=== PATIENT | female | born 1965 | race Caucasian/White ===

== ENCOUNTER 2020-11-01 11:00 | Outpatient (REF) | payer BC, SELFPAY ==
[2020-11-01 14:28] LABS: Alanine Aminotransferase 30 U/L (0-31); Albumin Level 4.3 g/dL (3.5-5.0); Alkaline Phosphatase 91 U/L (39-117); Amylase 33 U/L (28-100); Aspartate Amino Transferase 23 U/L (5-31); Bilirubin Direct 0.7 mg/dL (0.0-0.5); Blood Urea Nitrogen 14 mg/dL (9-16); Estimated Glomerular Filt Rate > 60; Lipase 18 U/L (8-78); Total Protein 7.2 g/dL (6.5-8.0)
[2020-11-02 10:22] LABS: Carbohydrate Antigen 19-9 10 U/mL (<34)
== END 2020-11-01 11:01 | disposition home or self-care (01) ==
LOC: HO.HMGCLDS 11:00
PROVIDERS: Visit Provider Internal Medicine
DX: K86.2 Cyst of pancreas (principal)
CPT/HCPCS: 36415; 80076; 82150; 82565; 83690; 84520; 86301

== ENCOUNTER 2020-11-08 10:25 | Outpatient (REF) | payer BC, SELFPAY ==
--- NOTE | ~2020-11-08 | CT_ITS ---
EXAMINATION: CT ABDOMEN AND PELVIS WITH CONTRAST CLINICAL INFORMATION: Pancreatic cyst. COMPARISON: CT abdomen and pelvis 07/31/2019 TECHNIQUE: Multidetector volumetric images were obtained from the superior aspect of the liver through the pubic symphysis following administration 85 mL of Omnipaque 350 intravenous contrast. Sagittal and coronal reformatted images were obtained on the technologist's workstation. Oral contrast: No This CT examination was performed using dose optimization techniques as appropriate, variously including the following: *Automated exposure control *Adjustment of mA and/or kV according to patient size (this includes techniques or standardized protocols for targeted exams where dose is matched to indication/reason for exam; i.e. extremities or head) *Use of iterative reconstruction technique DLP: 635 mGy-cm FINDINGS: LUNG BASES: Minimal atelectatic changes as seen in the lingula. Rest of the lungs are clear. Heart size is normal. LIVER, GALLBLADDER, AND BILIARY TREE: The liver is normal in size, shape, and attenuation. No focal hepatic lesion or biliary ductal dilatation is present. The gallbladder has been surgically removed. PANCREAS: There is a mild high attenuation lesion in the tail of pancreas measuring approximately 1 cm. It is stable. There are prominent vessels in this region and the splenic hilum. SPLEEN: Unremarkable. ADRENAL GLANDS: Unremarkable. KIDNEYS AND URETERS: The kidneys are normal in size, shape, and attenuation. No hydronephrosis, hydroureter, or calculi seen. No perinephric stranding. BLADDER: Unremarkable. GASTROINTESTINAL TRACT: There is scattered stool and oral contrast seen throughout the colon without distention. The small bowel loops are normal caliber. The stomach is nondistended. Appendix is normal caliber. ABDOMINAL WALL: No significant hernia is appreciated. LYMPH NODES: Normal. VASCULAR: Unremarkable. PELVIC VISCERA: There is no free fluid. No abnormal pelvic or inguinal lymph nodes seen. No evidence of hernia. OSSEOUS STRUCTURES: Unremarkable. CT/CT abdomen pelvis w con IMPRESSION: There is slight high-attenuation lesion in the tail of pancreas. It is stable to last CT abdomen and pelvis exam. Apparently this was a cyst described on previous CT abdomen exam 05/08/2018 exam. . Also visualized are adjacent prominent splenic vessels in the vicinity. The liver and pancreas is attenuated likely from fatty infiltration. Mild constipation.
[2020-11-08] MEDS: iohexoL 350 MG/ML 100 ML INFUS..BTL 85 ML IV (11:22)
== END 2020-11-08 10:26 | disposition home or self-care (01) ==
LOC: HO.CT 10:25
PROVIDERS: Visit Provider Internal Medicine
DX: K86.2 Cyst of pancreas (principal)
CPT/HCPCS: 74177; Q9967

== ENCOUNTER 2021-08-14 08:27 | Day surgery (SDC) | payer BC, SELFPAY ==
[2021-08-07 14:38] VITALS: BMI 34.8
[2021-08-14 08:54] VITALS: BP 131/62; PULSE 71; RESP 16; TEMP 36.5; O2SAT 97
[2021-08-14] MEDS: Lactated Ringers 1,000 ML 50 ML IVCONT (08:59)
--- NOTE | 2021-08-14 09:35 | HO.ANESPROP2 ---
FORMERLY [facility] Active Problems Active Problems: All Active Problems (Updated 08/07/21 @ 14:29 by Nely Lloyd RN) Knee pain, left (Acute) Past Medical History Medical History GERD (gastroesophageal reflux disease) Hot flashes Hx of colonic polyps Pancreatic cyst Smoker Surgical History Surgical History History of esophagogastroduodenoscopy (EGD) Hx laparoscopic cholecystectomy Hx of colonoscopy History of Problems with Anesthesia: No Social History Social History Are you a primary certified caregiver to a significant other at home: No Do you presently have visiting nurse or other home services: No Patient Tobacco Use Status: Current everyday Tobacco user Tobacco use type: Cigarette Cigarette Packs Per Day: 1 Cigarettes Per Day: 20.0 Years Smoked: 30+ Smoked in Last 30 Days: Yes Patient Interested in Nicotine Replacement: No Use of substances other than those prescribed or required for medical reasons: No Have you been hit, kicked, punched, or otherwise hurt by someone within the past year? If so, by whom?: No Are you DNR?: No Advance Directives: No Advance Directives Information Provided: No Advance Directives on File: No Recently lost weight without trying: No Eating poorly because of decreased appetite: No Nutrition Risks: No Nutritional Risk Patient : No Meds Allergies Allergy/AdvReac Type Severity Reaction Status Date / Time codeine [CODEINE] Allergy Intermediate NAUSEA & Verified 08/14/21 08:37 VOMITING Penicillins [PENICILLINS] Allergy Mild PAIN Verified 08/14/21 08:37 ACROSS CHEST NSAIDS (Non-Steroidal AdvReac Intermediate PANCREATITI Verified 08/14/21 08:37 Anti-Inflamma S [NSAIDS (NON-STEROIDAL ANTI-INFLAMMA] Active Medications: Current Medications Lactated Ringer's (Lr) 1,000 mls @ 50 mls/hr IVCONT .Q20H EVARISTO Last Admin: 08/14/21 08:59 Dose: 50 mls/hr Documented by: Sodium Biphosphate/Sodium Phosphate (Sodium Phosphate,Blaine-Dibasic 133 Ml Enema) 133 ml [place] ONCE PRN PRN Reason: Poor Colonoscopy Prep Results Home Medications Medication Instructions Recorded Confirmed Last Taken Type omeprazole 20 mg capsule,delayed 20 mg PO BID 03/31/21 08/07/21 Unknown History release cholecalciferol (vitamin D3) 25 25 mcg PO DAILY 08/07/21 08/07/21 Unknown History mcg (1,000 unit) capsule (Vitamin D3) Exam Exam Date and Time: August 14, 2021 0935 Height,Weight and Vital Signs: Height 5 ft 6 in Weight 97.976 kg Last Vital Signs Temp 97.7 F 08/14/21 08:54 Pulse 71 08/14/21 08:54 Resp 16 08/14/21 08:54 BP 131/62 08/14/21 08:54 Pulse Ox 97 08/14/21 08:54 Airway Mallampati Class: II Neck ROM: Full Loose/Missing/Broken Teeth: No Heart: RRR Lungs: CTA Assessment and Plan Assessment Anesthesia Assessment: Anesthesia Plan Discussed and Chart Reviewed Final Anesthetic Review History of Problems with Anesthesia: No NPO: Yes ASA Class: II Final Preanesthetic Review: Meds/Allgs Chart Reviewed, Consent Obtained/Reviewed and Anes Risks/Benef Reviewed Patient Risk: Low Procedure Risk: Low Anesthetic Plan Anesthetic Plan: MAC: Disposition: Standard PACU
[2021-08-14 10:49] VITALS: BP 177/76; PULSE 60; RESP 14; TEMP 36.6; O2SAT 96
--- NOTE | 2021-08-14 10:52 | P.BOP_ITS ---
Brief Operative Note Date of Service: 08/14/21 Pre-op diagnosis: Screening Post-op diagnosis: other (Colon polyps) Procedure: Colonoscopy to the cecum and TI with hot snare polypectomy x 3 Surgeon: Victor Manuel Montague Anesthesia: MAC Was an Headmaster/Mistress used for this Procedure?: No Estimated blood loss (mL): 2.0 Pathology: other (A. Ascending colon polyps B. Polyp at 20cm) Condition: stable Disposition: PACU
[2021-08-14 11:05] VITALS: BP 112/76; PULSE 60; RESP 17; TEMP 36.6; O2SAT 99
--- NOTE | 2021-08-14 11:47 | OP_ITS ---
SURGEON: Victor Manuel Montague MD INDICATIONS: The patient presents for evaluation of colorectal cancer screening and personal history of tubular adenoma of the colon. Full consent has been obtained from her for this, including risks of bleeding and perforation. PREOPERATIVE DIAGNOSIS: POSTOPERATIVE DIAGNOSIS: PROCEDURE PERFORMED: Colonoscopy to cecum and terminal ileum with snare polypectomy. ESTIMATED BLOOD LOSS: COMPLICATIONS: ANESTHESIA: Monitored anesthesia care. ASSISTANTS: SPECIMENS: PREOPERATIVE DIAGNOSES: Colorectal cancer screening and personal history of tubular adenoma of the colon. POSTOPERATIVE DIAGNOSES: Colorectal cancer screening and personal history of tubular adenoma of the colon, colon polyps, diverticulosis and internal hemorrhoids. DESCRIPTION OF PROCEDURE: The patient was placed in the left lateral decubitus position. The digital rectal exam revealed no abnormalities. The Olympus video pediatric colonoscope was entered into the rectum and advanced easily to the cecum. Once in the cecum, I did identify normal-appearing cecal pouch with appendiceal orifice and a normal-appearing ileocecal valve. The terminal ileum was cannulated and appeared normal. The scope was withdrawn back in the colon. The entire cecum and ileocecal valve appeared normal. The scope was slowly withdrawn assessing all mucosal surfaces carefully. Preparation was excellent. In the ascending colon, were 2 polyps. One was approximately 10 mm in diameter, and this was snared and recovered by suction. The polypectomy site appeared clean, without any sign of residual polyp nor bleeding. In the ascending colon, was another polyp that was approximately 12 to 15 mm in diameter and was snared and removed in piecemeal fashion with pieces recovered for pathology. The polypectomy site appeared clean, without any sign of residual polyp nor bleeding. At 20 cm, was an approximately 6 mm polyp, which was snared and recovered by suction. The polypectomy site appeared clean, without any sign of residual polyp nor bleeding. Of note, all of the snare polypectomies were done with the hot snare. There was a mild amount of sigmoid diverticulosis. In the rectum, scope was retroflexed visualizing internal hemorrhoids, but no other pathology. The rectal mucosa appeared normal. The scope was straightened out and withdrawn from the patient. She tolerated the procedure well and was returned to the recovery area in stable condition. IMPRESSION: 1. Colon polyps, status post snare polypectomy. 2. Mild diverticulosis. 3. Internal hemorrhoids. PLAN: The results of the pathology will be checked. I would recommend a repeat colonoscopy in 3 years for further screening and surveillance given her prior history and today's findings. She was advised not to use any aspirin nor NSAIDs for 1 week. MD CARRI Kimbrough/CED / [phone]
== END 2021-08-14 11:30 | disposition home or self-care (01) ==
PROVIDERS: Visit Provider Internal Medicine
PROC: 0DJD8ZZ Inspection of Lower Intestinal Tract, Via Natural or Artificial Opening Endoscopic (ICD-10-PCS; CPT 45378; principal; 2021-08-14 09:30)
DX: Z12.11 Encounter for screening for malignant neoplasm of colon (principal); Z86.010 Personal history of colon polyps; D12.2 Benign neoplasm of ascending colon; D12.5 Benign neoplasm of sigmoid colon; K57.30 Diverticulosis of large intestine without perforation or abscess without bleeding; K64.8 Other hemorrhoids; K21.9 Gastro-esophageal reflux disease without esophagitis; Z90.49 Acquired absence of other specified parts of digestive tract; Z79.899 Other long term (current) drug therapy
CPT/HCPCS: 45385; 88305

== ENCOUNTER 2021-12-16 11:45 | Outpatient (REF) | payer BC, SELFPAY ==
--- NOTE | ~2021-12-16 | XR_ITS ---
EXAMINATION: XR CHEST CLINICAL INFORMATION: Cough COMPARISON: July 02, 2017 TECHNIQUE: 2 views of the chest were obtained. FINDINGS: No significant abnormality is noted involving the heart, lungs, mediastinum, bony thorax or soft tissues. There are prominent pericardial fat pads. XR/XR chest 2V IMPRESSION: No acute disease.
[2021-12-16 12:10] LABS: Binax Internal Control QC Valid; Binax Now Covid-19 Ag Negative (Negative)
== END 2021-12-16 11:46 | disposition home or self-care (01) ==
LOC: HO.HMGCX 11:45
PROVIDERS: Visit Provider Physician Assistant
DX: R06.2 Wheezing (principal); J32.9 Chronic sinusitis, unspecified; R05.9 Cough, unspecified
CPT/HCPCS: 71046

== ENCOUNTER 2021-12-21 13:22 | Outpatient (REF) | payer BC, SELFPAY ==
--- NOTE | ~2021-12-21 | XR_ITS ---
EXAMINATION: XR CHEST CLINICAL INFORMATION: Cough. COMPARISON: None TECHNIQUE: 2 views of the chest were obtained. FINDINGS: No significant abnormality is noted involving the heart, lungs, mediastinum, bony thorax or soft tissues. XR/XR chest 2V IMPRESSION: Unremarkable chest examination.
[2021-12-21 13:48] LABS: Binax Internal Control QC Valid; Binax Now Covid-19 Ag Negative (Negative)
== END 2021-12-21 13:23 | disposition home or self-care (01) ==
LOC: HO.HMGCX 13:22
PROVIDERS: Visit Provider Physician Assistant
DX: J06.9 Acute upper respiratory infection, unspecified (principal); R05.9 Cough, unspecified
CPT/HCPCS: 71046

== ENCOUNTER 2023-01-03 07:13 | Outpatient (REF) | payer BC, SELFPAY ==
[2023-01-03 11:23] LABS: MANUAL DIFF FLAG NO
[2023-01-03 11:54] LABS: Basophils Absolute Auto 0.1 X10*3/uL (0.0-0.2); Basophils Percent Auto 0.6 % (0-2); Eosinophils Absolute Auto 0.2 X10*3/uL (0.0-0.4); Eosinophils Percent Auto 2.5 % (0-4); Hematocrit 46.2 % (37.0-47.0); Hemoglobin 14.9 g/dl (12.0-16.0); Imm Gran Abs Auto 0.03 X10*3/uL (0.00-0.03); Imm Gran Pct Auto 0.3 % (0.0-0.4); Lymphocytes Absolute Auto 2.7 X10*3/uL (1.2-4.9); Lymphocytes Percent Auto 28.4 % (20-40); Mean Corpuscular HGB Conc 32.3 g/dl (31.0-35.0); Mean Corpuscular Hemoglobin 29.4 pg (27.0-33.0); Mean Corpuscular Volume 91.3 fL (80.0-98.0); Mean Platelet Volume 12.6 fL (9.4-12.3); Monocytes Absolute Auto 0.5 X10*3/uL (0.1-1.2); Neutrophils Absolute Auto 5.9 x10*3/uL (2.0-8.3); Neutrophils Percent Auto 63.2 % (45-73); Platelet Count 221 X10*3/uL (160-400); Red Blood Count 5.06 X10*6/uL (4.20-5.50); Red Cell Distribution Width 13.3 % (11.0-16.0); White Blood Count 9.4 X10*3/uL (4.8-10.8)
[2023-01-03 11:54] LABS: Appearance Urine Hazy; Color Urine Yellow; Glucose Urine UA Negative (Negative); Leukocyte Esterase Urine Negative (Negative); Nitrite Urine Negative (Negative); Specific Gravity - Urine >= 1.030 (1.005-1.025); UMIC TRIGGER UA YES; Urine Blood Trace (Negative); Urine Ketones Negative (Negative); Urine Protein Negative (Neg-Trace)
[2023-01-03 12:08] LABS: Alanine Aminotransferase 22 U/L (0-31); Alkaline Phosphatase 103 U/L (39-117); Anion Gap 11 (12-20); Aspartate Amino Transferase 19 U/L (5-31); Bilirubin Total 0.6 mg/dL (0.0-1.0); Blood Urea Nitrogen 19 mg/dL (9-16); Carbon Dioxide 30 mmol/L (22-29); Chloride 106 mmol/L (96-108); Cholesterol 188 mg/dL; Estimated Glomerular Filt Rate > 60; Glucose Fasting 123 mg/dL (60-99); HDL Cholesterol 46 mg/dL; LDL Cholesterol Calculated 118 mg/dl; Potassium 4.5 mmol/L (3.3-5.1); Sodium 142 mmol/L (135-145); Total Protein 6.4 g/dL (6.5-8.0); Triglycerides 121 mg/dL
[2023-01-03 12:29] LABS: TSH reflex Free T4 3.19 uIU/mL (0.32-4.0); Vitamin D 25-OH Total 36.8 ng/mL (>30)
[2023-01-03 13:11] LABS: Bacteria Urine 1+ (None Seen); Hyaline Casts Urine 0-2 /LPF (0-2); RBC Urine 0-2 /HPF (0-2); Squamous Epithelial Cell Urine 0-2 /HPF (0-2); WBC Urine 0-5 /HPF (0-5)
== END 2023-01-03 07:14 | disposition home or self-care (01) ==
LOC: HO.HMGCLDS 07:13
PROVIDERS: PCP Internal Medicine; Visit Provider Internal Medicine
DX: Z00.00 Encounter for general adult medical examination without abnormal findings (principal); E55.9 Vitamin D deficiency, unspecified
CPT/HCPCS: 36415; 80053; 80061; 81001; 82306; 84443; 85025

== ENCOUNTER 2025-03-29 07:28 | Day surgery (SDC) | payer BC, SELFPAY ==
--- OUTSIDE RECORDS SUMMARY | 2025-03-09 10:43 | XMS_ITS | Patient Health Record ---
Author Organization [facility] [address] Address [address] [facility] [place] [address] Care Team Providers Care Optometrist Assistant Name Role Phone SURINDER BRADLEY Unavailable [phone] Allergies Allergen (clinical drug ingredient) Drug/Non Drug Allergy documented on EMR Reaction Allergy Type Onset Date Status codeine Codeine pain/sick Drug Allergy Active Penicillin pain Drug Allergy Active Results Component Value Reference Range Notes Comp. Metabolic Panel [id number] Reviewed date:11/19/2024 08:09:11 AM Interpretation: Performing Lab:[facility], [facility], Phone - [phone], Director - MDJobrigette Notes/Report: Glucose 112 70-99 mg/dL BUN 14 8-27 mg/dL Creatinine 0.64 0.57-1.00 mg/dL eGFR 100 >59 mL/min/1.73 BUN/Creatinine Ratio 22 12-28 Sodium 138 134-144 mmol/L Potassium 4.1 3.5-5.2 mmol/L Chloride 100 96-106 mmol/L Carbon Dioxide, Total 25 20-29 mmol/L Calcium 8.6 8.7-10.3 mg/dL Protein, Total 6.3 6.0-8.5 g/dL Albumin 4.0 3.9-4.9 g/dL Globulin, Total 2.3 1.5-4.5 g/dL Bilirubin, Total 0.6 0.0-1.2 mg/dL Alkaline Phosphatase 95 44-121 IU/L AST (SGOT) 18 0-40 IU/L ALT (SGPT) 23 0-32 IU/L Lipid Panel-[id number] Reviewed date:11/19/2024 08:09:11 AM Interpretation: Performing Lab:[facility], [place], Phone - [phone], Director - MDCarmelitadry Notes/Report: Cholesterol, Total 181 100-199 mg/dL Triglycerides 119 0-149 mg/dL HDL Cholesterol 54 >39 mg/dL VLDL Cholesterol Manfred 21 5-40 mg/dL LDL Chol Calc ([facility]) 106 0-99 mg/dL Vitamin D, 20-[id number] Reviewed date:11/19/2024 08:07:52 AM Interpretation: Performing Lab:[facility], [address] [place] [address], Phone - [phone], Director - Davion Notes/Report: Vitamin D, 25-Hydroxy 29.3 30.0-100.0 ng/mL Vitamin D deficiency has been defined by the [place] of Medicine and an Endocrine Society practice guideline as a level of serum 25-OH vitamin D less than 20 ng/mL (1,2). The Endocrine Society went on to further define vitamin D insufficiency as a level between 21 and 29 ng/mL (2). 1. IOM ([place] of Medicine). 2010. Dietary reference intakes for calcium and D. [place]: The National Academies Press. 2. Rolando MF, Gertrudis [place], Singh GOMEZ, et al. Evaluation, treatment, and prevention of vitamin D deficiency: an Endocrine Society clinical practice guideline. JCEM. 2010; 96(7):1911-30. Triiodothyronine (T3), Free- [id number] Reviewed date:11/19/2024 08:09:11 AM Interpretation: Performing Lab:[facility], [address] [place] [address], Phone - [phone], - Davion Notes/Report: Triiodothyronine (T3), Free 3.3 2.0-4.4 pg/mL CBC With Differential/Platel et-[id number] Reviewed date:11/19/2024 08:09:11 AM Interpretation: Performing Lab:[facility], [address] [facility], [place], Phone - [phone], - Davion Notes/Report: WBC 9.4 3.4-10.8 x10E3/uL RBC 4.87 3.77-5.28 x10E6/uL Hemoglobin 14.3 11.1-15.9 g/dL Hematocrit 44.2 34.0-46.6 % MCV 91 79-97 fL MCH 29.4 26.6-33.0 pg MCHC 32.4 31.5-35.7 g/dL RDW 12.7 11.7-15.4 % Platelets 221 150-450 x10E3/uL Neutrophils 68 Not Estab. % Lymphs 24 Not Estab. % Monocytes 5 Not Estab. % Eos 2 Not Estab. % Basos 1 Not Estab. % Neutrophils (Absolute) 6.4 1.4-7.0 x10E3/uL Lymphs (Absolute) 2.2 0.7-3.1 x10E3/uL Monocytes(Absolute) 0.5 0.1-0.9 x10E3/uL Eos (Absolute) 0.2 0.0-0.4 x10E3/uL Baso (Absolute) 0.1 0.0-0.2 x10E3/uL Immature Granulocytes 0 Not Estab. % Immature Grans (Abs) 0.0 0.0-0.1 x10E3/uL TSH-[id number] Reviewed date:11/19/2024 08:09:11 AM Interpretation: Performing Lab:[facility] [place], [address] [place] [address], Phone - [phone], Director - MDJodry Notes/Report: TSH 2.380 0.450-4.500 uIU/mL Urinalysis, Complete-[id number] Reviewed date:11/19/2024 08:09:11 AM Interpretation: Performing Lab:[facility] [place], [address] [place] [address], Phone - [phone], Director - MDJodry Notes/Report: Specific [employer] 1.010 1.005-1.030 pH 6.5 5.0-7.5 Urine-Color Yellow Yellow Appearance Clear Clear WBC Esterase Negative Negative Protein Negative Negative/Trace Glucose Negative Negative Ketones Negative Negative Occult Blood Negative Negative Bilirubin Negative Negative Urobilinogen,Semi-Qn 0.2 0.2-1.0 mg/dL Nitrite, Urine Negative Negative Microscopic Examination Micr oscopic follows if indicated. Microscopic Examination See below: Micr oscopic was indicated and was performed. WBC None seen 0 - 5 /hpf RBC None seen 0 - 2 /hpf Epithelial Cells (non renal) None seen 0 - 10 /hpf Casts None seen None seen /lpf Bacteria None seen None seen/Few Thyroxine (T4) Free, Direct- [id number] Reviewed date:11/19/2024 08:09:11 AM Interpretation: Performing Lab:[facility], [facility] [place], Phone - [phone], Director - Davion Notes/Report: T4,Free(Direct) 1.23 0.82-1.77 ng/dL Vitamin [id number] Reviewed date:11/19/2024 08:09:11 AM Interpretation: Performing Lab:[facility], [facility] [place], Phone - [phone], Director - Davion Notes/Report: Vitamin B12 071 718-7029 pg/mL Hemoglobin [id number] Reviewed date:11/19/2024 08:07:58 AM Interpretation: Performing Lab:[facility], [facility] [place], Phone - [phone], Director - Davion Notes/Report: Hemoglobin A1c 5.9 4.8-5.6 % . Prediabetes: 5.7 - 6.4 Diabetes: >6.4 Glycemic control for adults with diabetes: <7.0 Reason For Referral No Information Medications Medication SIG (Take, Route, Frequency, Duration) Notes Start Date End Date Status Vitamin D3 10 MCG (400 UNIT) 2 tablets Orally Once a day Active Probiotic - as directed Orally Active Omeprazole 20 MG Oral for 90 Days Active Social History Tobacco Use: Social History Observation Description Date Details (start date - stop date) Current Smoker NA - NA Tobacco Use/Smoking Question Answer Notes Are you a current smoker How often do you smoke cigarettes? every day How many cigarettes a day do you smoke? 20 Alcohol Screen (Audit-C) Question Answer Notes Did you have a drink contain ing alcohol in the past year? Yes How often did you have a dri nk containing alcohol in the past year? 2 to 3 times a week (3 points) Points 3 Interpretation Positive Section Notes: Tob: Smokes 1/2 pack a day for last 40 years, used to be 2 PPD ETOH: On weekends Drugs: None [employer], retired Tob: Smokes 1/2 pack a day for last 40 years, used to be 2 PPD ETOH: On weekends Drugs: None [employer], retired Problems Problem Type SNOMED Code ICD Code Onset Dates Problem Status W/U Status Risk Notes Problem 89225038 Vitamin D defici ency, unspecified (E55.9) Active confirmed Problem 506157178 Encounter for screening for diabetes mellitus (Z13.1) Active confirmed Problem 96351018 Hyperlipidemia, unspecified hyperlipidemia type (E78.5) Active confirmed Problem Hyperlipoproteinemia (0530242) Acquired hyperlipoproteinemia (E78.5) Active confirmed Problem 18490928 Hypothyroidism, unspecified type (E03.9) Active confirmed Problem 546921725 Annual physical exam (Z00.00) Active confirmed Problem 215972588 BMI 33.0-33.9,ad ult (Z68.33) Active confirmed Problem 38574958 Anemia due to vi tamin B12 deficiency, unspecified B12 deficiency type (D51.9) Active confirmed Problem Abnormal metabolic state due to diabetes mellitus (494247082) Abnormal metabolic state due to diabetes mellitus (E11.9) Active confirmed Problem 081617956 Lipid screening (Z13.220) Active confirmed Problem Vitamin D deficiency (97036872) Vitamin D3 deficiency (E55.9) Active confirmed Problem Obesity (616040835) Obesity (E66.9) Active conf irmed Vital Signs Heart Rate 73 /min 11/23/2024 Oximetry 95 % 11/23/2024 Blood pressure diastolic 78 mm Hg 11/23/2024 Height 66 in 11/23/2024 Blood pressure systolic 118 mm Hg 11/23/2024 Weight 211.2 lbs 11/23/2024 BMI 34.08 kg/m2 11/23/2024 Encounters Encounter Location Date Provider Diagnosis [facility] [address] [place] [address] 10/09/2024 SURINDER BRADLEY Esophageal hiatal asim jules K44.9 ; Obesity E66.9 ; Tobacco abuse Z72.0 and BMI 33.0-33.9,adult Z68.[address] [facility] [address] [place] [address] 11/23/2024 SURINDER BRADLEY Esophageal hiatal he jorge a K44.9 ; Annual physical exam Z00.00 ; Obesity E66.9 ; Tobacco abuse Z72.0 ; BMI 33.0-33.9,adult Z68.33 and Prediabetes R73.03 Assessments Encounter Date Diagnosis (ICD Code) Assessment Notes Treatment Notes Treatment Clinical Notes Section Notes 10/09/2024 Obesity (ICD-10 - E66.9) # Esophageal hernia: Omperazole 20 mg po daily # Colon polyps: Follows closely with GI. Due for colonoscopy this year # Tobacco use: Smokes 2-10 cig/day. no interest in quititng. No hx of low dose lung CT screening # Obesity. Diet/lifestyle discussed. # Hx of pancreatitis. Sounds like choledocolithiasis. Obtain previous records # Screening: UTD Patient welcome to practice. Will obtain records from previous office. We will set up for physical. Protocols were discussed with the patient. Patient verbalizes understanding. Case discussed with collaborating physician Flor Ayoub who reviewed the assessment and plan. Chart, medications, labs, vital signs reviewed. Dictation was accomplished with the use of Fetch MD voice recognition software, prone to medical misidentifications and grammatical errors. This is unintentional and the practitioner does try to identify and correct these, but some could still be present. Please do not hesitate to contact practitioner for clarification. All questions answered to patients satisfaction. Patient verbalized understanding of diagnosis and treatments explained. To call sooner prior to next visit it any questions/concerns arise. 10/09/2024 Esophageal hiatal hernia (ICD-10 - K44.9) # Esophageal hernia: Omperazole 20 mg po daily # Colon polyps: Follows closely with GI. Due for colonoscopy this year # Tobacco use: Smokes 2-10 cig/day. no interest in quititng. No hx of low dose lung CT screening # Obesity. Diet/lifestyle discussed. # Hx of pancreatitis. Sounds like choledocolithiasis. Obtain previous records # Screening: UTD Patient welcome to practice. Will obtain records from previous office. We will set up for physical. Protocols were discussed with the patient. Patient verbalizes understanding. Case discussed with collaborating physician Flor Ayoub who reviewed the assessment and plan. Chart, medications, labs, vital signs reviewed. Dictation was accomplished with the use of Fetch MD voice recognition software, prone to medical misidentifications and grammatical errors. This is unintentional and the practitioner does try to identify and correct these, but some could still be present. Please do not hesitate to contact practitioner for clarification. All questions answered to patients satisfaction. Patient verbalized understanding of diagnosis and treatments explained. To call sooner prior to next visit it any questions/concerns arise. 11/23/2024 Annual physical exam (ICD-10 - Z00.00) # Esophageal hernia: Omperazole 20 mg po daily # Colon polyps: Follows closely with GI. Due for colonoscopy November 2024 # Tobacco use: Smokes 2-10 cig/day. no interest in quititng. No hx of low dose lung CT screening, declines at this time # Obesity. Diet/lifestyle discussed. Berberine was recommended # Hx of pancreatitis. Sounds like choledocolithiasis. Obtain previous records #PreDM. A1C 5.9. Discussed lowering carbohydrate intake. Increase physical activity # Screenings: Colonoscopy December 2024. Mammogram: Due. # Vaccines: Discused Shingrix. Physical Men Patient seen and examined. Comprehensive discussion was done on the following. 1. Nutrition: It is important to follow a healthy diet based on lots of vegetables and legumes and good fat. Avoid processed food and processed carbohydrates. Learn to prepare your own meals. Learn to read labels and avoid high fructose corn syrup, processed chemicals added to increase shelf life and preprepared meals. Avoid fast foods. Learn to eat slowly and plan meals for a week. Try to count calories and be mindful off daily calorie intake. Get into the habit of keeping an eye on your weight by using an appropriate scale. Learn to log exercise and discussed fitness Apps like [employer] which can help keep log off calories taken versus calories burned. Local food should be preferred. Discussed Dirty Dozen Versus Clean Fifteen. Discussed healthy supplements like fish oil, Tumeric, Curcumin, Melatonin, Resveratrol, Probiotics, Vitamin-D, Alpha-Lipoic acid, Vitamin-D and coconut oil. 2. It is important to exercise regularly. Is a good habit to walk at least 30-45 minutes a day. Gentle weightlifting with standard precautions to protect the back. Finding activity like cycling or hiking and get into the habit of engaging in it. Stretching before and after the exercises important. It is also important to contact me if there are any problems like shortness of breath, chest pain, back pain and joint or muscle pain associated with the exercise. 3. Discussed age appropriate screening guidelines. Colonoscopy needs to start at age 50 with stool for occult blood as appropriate. There is a new test that can test for genetic abnormalities in the stool sample. This would not replace a colonoscopy but could be used as a screening tool for patients who do not want a colonoscopy. We discussed the importance of early detection of colon cancer. 5. Discussed safe driving and no use of smart phone while driving 6. Age-appropriate immunizations were discussed. A tetanus booster is needed every 10 years. Flu vaccine is recommended every year just before the start of the flu season. Shingles vaccine is recommended after age 50 but not all insurances cover it. Pneumonia vaccine is given after age 65 unless there are certain comorbidities for which it is started earlier. 7. Diagnostic labs were discussed. These could include CBC CMP and lipids with fasting blood glucose and insulin levels. Vitamin D and hemoglobin A1c testing might be appropriate. Patient welcome to practice. Will obtain records from previous office. We will set up for physical. Protocols were discussed with the patient. Patient verbalizes understanding. Case discussed with collaborating physician Ronald Ayoub who reviewed the assessment and plan. Chart, medications, labs, vital signs reviewed. Dictation was accomplished with the use of Fetch MD voice recognition software, prone to medical misidentifications and grammatical errors. This is unintentional and the practitioner does try to identify and correct these, but some could still be present. Please do not hesitate to contact practitioner for clarification. All questions answered to patients satisfaction. Patient verbalized understanding of diagnosis and treatments explained. To call sooner prior to next visit it any questions/concerns arise. 11/23/2024 Esophageal hiatal hernia (ICD-10 - K44.9) # Esophageal hernia: Omperazole 20 mg po daily # Colon polyps: Follows closely with GI. Due for colonoscopy November 2024 # Tobacco use: Smokes 2-10 cig/day. no interest in quititng. No hx of low dose lung CT screening, declines at this time # Obesity. Diet/lifestyle discussed. Berberine was recommended # Hx of pancreatitis. Sounds like choledocolithiasis. Obtain previous records #PreDM. A1C 5.9. Discussed lowering carbohydrate intake. Increase physical activity # Screenings: Colonoscopy December 2024. Mammogram: Due. # Vaccines: Discused Shingrix. Physical Men Patient seen and examined. Comprehensive discussion was done on the following. 1. Nutrition: It is important to follow a healthy diet based on lots of vegetables and legumes and good fat. Avoid processed food and processed carbohydrates. Learn to prepare your own meals. Learn to read labels and avoid high fructose corn syrup, processed chemicals added to increase shelf life and preprepared meals. Avoid fast foods. Learn to eat slowly and plan meals for a week. Try to count calories and be mindful off daily calorie intake. Get into the habit of keeping an eye on your weight by using an appropriate scale. Learn to log exercise and discussed fitness Apps like [employer] which can help keep log off calories taken versus calories burned. Local food should be preferred. Discussed Dirty Dozen Versus Clean Fifteen. Discussed healthy supplements like fish oil, Tumeric, Curcumin, Melatonin, Resveratrol, Probiotics, Vitamin-D, Alpha-Lipoic acid, Vitamin-D and coconut oil. 2. It is important to exercise regularly. Is a good habit to walk at least 30-45 minutes a day. Gentle weightlifting with standard precautions to protect the back. Finding activity like cycling or hiking and get into the habit of engaging in it. Stretching before and after the exercises important. It is also important to contact me if there are any problems like shortness of breath, chest pain, back pain and joint or muscle pain associated with the exercise. 3. Discussed age appropriate screening guidelines. Colonoscopy needs to start at age 50 with stool for occult blood as appropriate. There is a new test that can test for genetic abnormalities in the stool sample. This would not replace a colonoscopy but could be used as a screening tool for patients who do not want a colonoscopy. We discussed the importance of early detection of colon cancer. 5. Discussed safe driving and no use of smart phone while driving 6. Age-appropriate immunizations were discussed. A tetanus booster is needed every 10 years. Flu vaccine is recommended every year just before the start of the flu season. Shingles vaccine is recommended after age 50 but not all insurances cover it. Pneumonia vaccine is given after age 65 unless there are certain comorbidities for which it is started earlier. 7. Diagnostic labs were discussed. These could include CBC CMP and lipids with fasting blood glucose and insulin levels. Vitamin D and hemoglobin A1c testing might be appropriate. Patient welcome to practice. Will obtain records from previous office. We will set up for physical. Protocols were discussed with the patient. Patient verbalizes understanding. Case discussed with collaborating physician Ronald Ayoub who reviewed the assessment and plan. Chart, medications, labs, vital signs reviewed. Dictation was accomplished with the use of Fetch MD voice recognition software, prone to medical misidentifications and grammatical errors. This is unintentional and the practitioner does try to identify and correct these, but some could still be present. Please do not hesitate to contact practitioner for clarification. All questions answered to patients satisfaction. Patient verbalized understanding of diagnosis and treatments explained. To call sooner prior to next visit it any questions/concerns arise. 11/23/2024 Obesity (ICD-10 - E66.9) # Esophageal hernia: Omperazole 20 mg po daily # Colon polyps: Follows closely with GI. Due for colonoscopy November 2024 # Tobacco use: Smokes 2-10 cig/day. no interest in quititng. No hx of low dose lung CT screening, declines at this time # Obesity. Diet/lifestyle discussed. Berberine was recommended # Hx of pancreatitis. Sounds like choledocolithiasis. Obtain previous records #PreDM. A1C 5.9. Discussed lowering carbohydrate intake. Increase physical activity # Screenings: Colonoscopy December 2024. Mammogram: Due. # Vaccines: Discused Shingrix. Physical Men Patient seen and examined. Comprehensive discussion was done on the following. 1. Nutrition: It is important to follow a healthy diet based on lots of vegetables and legumes and good fat. Avoid processed food and processed carbohydrates. Learn to prepare your own meals. Learn to read labels and avoid high fructose corn syrup, processed chemicals added to increase shelf life and preprepared meals. Avoid fast foods. Learn to eat slowly and plan meals for a week. Try to count calories and be mindful off daily calorie intake. Get into the habit of keeping an eye on your weight by using an appropriate scale. Learn to log exercise and discussed fitness Apps like [employer] which can help keep log off calories taken versus calories burned. Local food should be preferred. Discussed Dirty Dozen Versus Clean Fifteen. Discussed healthy supplements like fish oil, Tumeric, Curcumin, Melatonin, Resveratrol, Probiotics, Vitamin-D, Alpha-Lipoic acid, Vitamin-D and coconut oil. 2. It is important to exercise regularly. Is a good habit to walk at least 30-45 minutes a day. Gentle weightlifting with standard precautions to protect the back. Finding activity like cycling or hiking and get into the habit of engaging in it. Stretching before and after the exercises important. It is also important to contact me if there are any problems like shortness of breath, chest pain, back pain and joint or muscle pain associated with the exercise. 3. Discussed age appropriate screening guidelines. Colonoscopy needs to start at age 50 with stool for occult blood as appropriate. There is a new test that can test for genetic abnormalities in the stool sample. This would not replace a colonoscopy but could be used as a screening tool for patients who do not want a colonoscopy. We discussed the importance of early detection of colon cancer. 5. Discussed safe driving and no use of smart phone while driving 6. Age-appropriate immunizations were discussed. A tetanus booster is needed every 10 years. Flu vaccine is recommended every year just before the start of the flu season. Shingles vaccine is recommended after age 50 but not all insurances cover it. Pneumonia vaccine is given after age 65 unless there are certain comorbidities for which it is started earlier. 7. Diagnostic labs were discussed. These could include CBC CMP and lipids with fasting blood glucose and insulin levels. Vitamin D and hemoglobin A1c testing might be appropriate. Patient welcome to practice. Will obtain records from previous office. We will set up for physical. Protocols were discussed with the patient. Patient verbalizes understanding. Case discussed with collaborating physician Ronald Ayoub who reviewed the assessment and plan. Chart, medications, labs, vital signs reviewed. Dictation was accomplished with the use of Fetch MD voice recognition software, prone to medical misidentifications and grammatical errors. This is unintentional and the practitioner does try to identify and correct these, but some could still be present. Please do not hesitate to contact practitioner for clarification. All questions answered to patients satisfaction. Patient verbalized understanding of diagnosis and treatments explained. To call sooner prior to next visit it any questions/concerns arise. 10/09/2024 Tobacco abuse (ICD-10 - Z72.0) # Esophageal hernia: Omperazole 20 mg po daily # Colon polyps: Follows closely with GI. Due for colonoscopy this year # Tobacco use: Smokes 2-10 cig/day. no interest in quititng. No hx of low dose lung CT screening # Obesity. Diet/lifestyle discussed. # Hx of pancreatitis. Sounds like choledocolithiasis. Obtain previous records # Screening: UTD Patient welcome to practice. Will obtain records from previous office. We will set up for physical. Protocols were discussed with the patient. Patient verbalizes understanding. Case discussed with collaborating physician Flor Ayoub who reviewed the assessment and plan. Chart, medications, labs, vital signs reviewed. Dictation was accomplished with the use of Fetch MD voice recognition software, prone to medical misidentifications and grammatical errors. This is unintentional and the practitioner does try to identify and correct these, but some could still be present. Please do not hesitate to contact practitioner for clarification. All questions answered to patients satisfaction. Patient verbalized understanding of diagnosis and treatments explained. To call sooner prior to next visit it any questions/concerns arise. 10/09/2024 BMI 33.0-33.9,adul t (ICD-10 - Z68.33) # Esophageal hernia: Omperazole 20 mg po daily # Colon polyps: Follows closely with GI. Due for colonoscopy this year # Tobacco use: Smokes 2-10 cig/day. no interest in quititng. No hx of low dose lung CT screening # Obesity. Diet/lifestyle discussed. # Hx of pancreatitis. Sounds like choledocolithiasis. Obtain previous records # Screening: UTD Patient welcome to practice. Will obtain records from previous office. We will set up for physical. Protocols were discussed with the patient. Patient verbalizes understanding. Case discussed with collaborating physician Flor Ayoub who reviewed the assessment and plan. Chart, medications, labs, vital signs reviewed. Dictation was accomplished with the use of Fetch MD voice recognition software, prone to medical misidentifications and grammatical errors. This is unintentional and the practitioner does try to identify and correct these, but some could still be present. Please do not hesitate to contact practitioner for clarification. All questions answered to patients satisfaction. Patient verbalized understanding of diagnosis and treatments explained. To call sooner prior to next visit it any questions/concerns arise. 11/23/2024 Tobacco abuse (ICD-10 - Z72.0) # Esophageal hernia: Omperazole 20 mg po daily # Colon polyps: Follows closely with GI. Due for colonoscopy November 2024 # Tobacco use: Smokes 2-10 cig/day. no interest in quititng. No hx of low dose lung CT screening, declines at this time # Obesity. Diet/lifestyle discussed. Berberine was recommended # Hx of pancreatitis. Sounds like choledocolithiasis. Obtain previous records #PreDM. A1C 5.9. Discussed lowering carbohydrate intake. Increase physical activity # Screenings: Colonoscopy December 2024. Mammogram: Due. # Vaccines: Discused Shingrix. Physical Men Patient seen and examined. Comprehensive discussion was done on the following. 1. Nutrition: It is important to follow a healthy diet based on lots of vegetables and legumes and good fat. Avoid processed food and processed carbohydrates. Learn to prepare your own meals. Learn to read labels and avoid high fructose corn syrup, processed chemicals added to increase shelf life and preprepared meals. Avoid fast foods. Learn to eat slowly and plan meals for a week. Try to count calories and be mindful off daily calorie intake. Get into the habit of keeping an eye on your weight by using an appropriate scale. Learn to log exercise and discussed fitness Apps like [employer] which can help keep log off calories taken versus calories burned. Local food should be preferred. Discussed Dirty Dozen Versus Clean Fifteen. Discussed healthy supplements like fish oil, Tumeric, Curcumin, Melatonin, Resveratrol, Probiotics, Vitamin-D, Alpha-Lipoic acid, Vitamin-D and coconut oil. 2. It is important to exercise regularly. Is a good habit to walk at least 30-45 minutes a day. Gentle weightlifting with standard precautions to protect the back. Finding activity like cycling or hiking and get into the habit of engaging in it. Stretching before and after the exercises important. It is also important to contact me if there are any problems like shortness of breath, chest pain, back pain and joint or muscle pain associated with the exercise. 3. Discussed age appropriate screening guidelines. Colonoscopy needs to start at age 50 with stool for occult blood as appropriate. There is a new test that can test for genetic abnormalities in the stool sample. This would not replace a colonoscopy but could be used as a screening tool for patients who do not want a colonoscopy. We discussed the importance of early detection of colon cancer. 5. Discussed safe driving and no use of smart phone while driving 6. Age-appropriate immunizations were discussed. A tetanus booster is needed every 10 years. Flu vaccine is recommended every year just before the start of the flu season. Shingles vaccine is recommended after age 50 but not all insurances cover it. Pneumonia vaccine is given after age 65 unless there are certain comorbidities for which it is started earlier. 7. Diagnostic labs were discussed. These could include CBC CMP and lipids with fasting blood glucose and insulin levels. Vitamin D and hemoglobin A1c testing might be appropriate. Patient welcome to practice. Will obtain records from previous office. We will set up for physical. Protocols were discussed with the patient. Patient verbalizes understanding. Case discussed with collaborating physician Ronald Ayoub who reviewed the assessment and plan. Chart, medications, labs, vital signs reviewed. Dictation was accomplished with the use of Fetch MD voice recognition software, prone to medical misidentifications and grammatical errors. This is unintentional and the practitioner does try to identify and correct these, but some could still be present. Please do not hesitate to contact practitioner for clarification. All questions answered to patients satisfaction. Patient verbalized understanding of diagnosis and treatments explained. To call sooner prior to next visit it any questions/concerns arise. 11/23/2024 BMI 33.0-33.9,adul t (ICD-10 - Z68.33) # Esophageal hernia: Omperazole 20 mg po daily # Colon polyps: Follows closely with GI. Due for colonoscopy November 2024 # Tobacco use: Smokes 2-10 cig/day. no interest in quititng. No hx of low dose lung CT screening, declines at this time # Obesity. Diet/lifestyle discussed. Berberine was recommended # Hx of pancreatitis. Sounds like choledocolithiasis. Obtain previous records #PreDM. A1C 5.9. Discussed lowering carbohydrate intake. Increase physical activity # Screenings: Colonoscopy December 2024. Mammogram: Due. # Vaccines: Discused Shingrix. Physical Men Patient seen and examined. Comprehensive discussion was done on the following. 1. Nutrition: It is important to follow a healthy diet based on lots of vegetables and legumes and good fat. Avoid processed food and processed carbohydrates. Learn to prepare your own meals. Learn to read labels and avoid high fructose corn syrup, processed chemicals added to increase shelf life and preprepared meals. Avoid fast foods. Learn to eat slowly and plan meals for a week. Try to count calories and be mindful off daily calorie intake. Get into the habit of keeping an eye on your weight by using an appropriate scale. Learn to log exercise and discussed fitness Apps like [employer] which can help keep log off calories taken versus calories burned. Local food should be preferred. Discussed Dirty Dozen Versus Clean Fifteen. Discussed healthy supplements like fish oil, Tumeric, Curcumin, Melatonin, Resveratrol, Probiotics, Vitamin-D, Alpha-Lipoic acid, Vitamin-D and coconut oil. 2. It is important to exercise regularly. Is a good habit to walk at least 30-45 minutes a day. Gentle weightlifting with standard precautions to protect the back. Finding activity like cycling or hiking and get into the habit of engaging in it. Stretching before and after the exercises important. It is also important to contact me if there are any problems like shortness of breath, chest pain, back pain and joint or muscle pain associated with the exercise. 3. Discussed age appropriate screening guidelines. Colonoscopy needs to start at age 50 with stool for occult blood as appropriate. There is a new test that can test for genetic abnormalities in the stool sample. This would not replace a colonoscopy but could be used as a screening tool for patients who do not want a colonoscopy. We discussed the importance of early detection of colon cancer. 5. Discussed safe driving and no use of smart phone while driving 6. Age-appropriate immunizations were discussed. A tetanus booster is needed every 10 years. Flu vaccine is recommended every year just before the start of the flu season. Shingles vaccine is recommended after age 50 but not all insurances cover it. Pneumonia vaccine is given after age 65 unless there are certain comorbidities for which it is started earlier. 7. Diagnostic labs were discussed. These could include CBC CMP and lipids with fasting blood glucose and insulin levels. Vitamin D and hemoglobin A1c testing might be appropriate. Patient welcome to practice. Will obtain records from previous office. We will set up for physical. Protocols were discussed with the patient. Patient verbalizes understanding. Case discussed with collaborating physician Ronald Ayoub who reviewed the assessment and plan. Chart, medications, labs, vital signs reviewed. Dictation was accomplished with the use of Fetch MD voice recognition software, prone to medical misidentifications and grammatical errors. This is unintentional and the practitioner does try to identify and correct these, but some could still be present. Please do not hesitate to contact practitioner for clarification. All questions answered to patients satisfaction. Patient verbalized understanding of diagnosis and treatments explained. To call sooner prior to next visit it any questions/concerns arise. 11/23/2024 Prediabetes (ICD-10 - R73.03) # Esophageal hernia: Omperazole 20 mg po daily # Colon polyps: Follows closely with GI. Due for colonoscopy November 2024 # Tobacco use: Smokes 2-10 cig/day. no interest in quititng. No hx of low dose lung CT screening, declines at this time # Obesity. Diet/lifestyle discussed. Berberine was recommended # Hx of pancreatitis. Sounds like choledocolithiasis. Obtain previous records #PreDM. A1C 5.9. Discussed lowering carbohydrate intake. Increase physical activity # Screenings: Colonoscopy December 2024. Mammogram: Due. # Vaccines: Discused Shingrix. Physical Men Patient seen and examined. Comprehensive discussion was done on the following. 1. Nutrition: It is important to follow a healthy diet based on lots of vegetables and legumes and good fat. Avoid processed food and processed carbohydrates. Learn to prepare your own meals. Learn to read labels and avoid high fructose corn syrup, processed chemicals added to increase shelf life and preprepared meals. Avoid fast foods. Learn to eat slowly and plan meals for a week. Try to count calories and be mindful off daily calorie intake. Get into the habit of keeping an eye on your weight by using an appropriate scale. Learn to log exercise and discussed fitness Apps like [employer] which can help keep log off calories taken versus calories burned. Local food should be preferred. Discussed Dirty Dozen Versus Clean Fifteen. Discussed healthy supplements like fish oil, Tumeric, Curcumin, Melatonin, Resveratrol, Probiotics, Vitamin-D, Alpha-Lipoic acid, Vitamin-D and coconut oil. 2. It is important to exercise regularly. Is a good habit to walk at least 30-45 minutes a day. Gentle weightlifting with standard precautions to protect the back. Finding activity like cycling or hiking and get into the habit of engaging in it. Stretching before and after the exercises important. It is also important to contact me if there are any problems like shortness of breath, chest pain, back pain and joint or muscle pain associated with the exercise. 3. Discussed age appropriate screening guidelines. Colonoscopy needs to start at age 50 with stool for occult blood as appropriate. There is a new test that can test for genetic abnormalities in the stool sample. This would not replace a colonoscopy but could be used as a screening tool for patients who do not want a colonoscopy. We discussed the importance of early detection of colon cancer. 5. Discussed safe driving and no use of smart phone while driving 6. Age-appropriate immunizations were discussed. A tetanus booster is needed every 10 years. Flu vaccine is recommended every year just before the start of the flu season. Shingles vaccine is recommended after age 50 but not all insurances cover it. Pneumonia vaccine is given after age 65 unless there are certain comorbidities for which it is started earlier. 7. Diagnostic labs were discussed. These could include CBC CMP and lipids with fasting blood glucose and insulin levels. Vitamin D and hemoglobin A1c testing might be appropriate. Patient welcome to practice. Will obtain records from previous office. We will set up for physical. Protocols were discussed with the patient. Patient verbalizes understanding. Case discussed with collaborating physician Ronald Ayoub who reviewed the assessment and plan. Chart, medications, labs, vital signs reviewed. Dictation was accomplished with the use of Fetch MD voice recognition software, prone to medical misidentifications and grammatical errors. This is unintentional and the practitioner does try to identify and correct these, but some could still be present. Please do not hesitate to contact practitioner for clarification. All questions answered to patients satisfaction. Patient verbalized understanding of diagnosis and treatments explained. To call sooner prior to next visit it any questions/concerns arise. Plan Of Treatment Pending Test Test Name Order Date LIPID PANEL, STANDARD 10/09/2024 LIPID PANEL, STANDARD 11/23/2024 COMPREHENSIVE METABOLIC PANEL 10/09/2024 CBC (INCLUDES DIFF/PLT) 10/09/2024 URINALYSIS, COMPLETE 10/09/2024 HEMOGLOBIN A1c 10/09/2024 HEMOGLOBIN A1c 11/23/2024 VITAMIN B12 10/09/2024 T4, FREE 10/09/2024 TSH 10/09/2024 T3, FREE 10/09/2024 VITAMIN D,25-OH,TOTAL,IA 10/09/2024 VITAMIN D,25-OH,TOTAL,IA 11/23/2024 Next Appt Details Provider Name:SURINDER BRADLEY, 05/24/2025 01:00:00 PM, [address], [place], [address], Insurance Providers Payer Name Payer Address Payer Phone Subscriber Number Group Number Insured Name Patient Relationship to Insured Coverage Start Date Coverage End Date [facility] [address] [place] [address] [id number] Enriquez Self - patient is the insured 4 Medical (General) History Medical History History ICD Code Vertigo R42 Esophageal hiatal hernia K44.9 Obesity E66.9 Polyp of colon K63.5 Glucosuria Vitamin D3 deficiency E55.9 Surgical History Surgery Date(Month/Year) Cholecystectomy 09/22/2016 Hospitalization History Reason Date(Month/Year) Pancreatitis 2006 EGD/Colonoscopy- Dr Montague 2024
[2025-03-26 07:11] VITALS: BMI 33.1
--- NOTE | 2025-03-26 10:53 | P.CONAN_ITS ---
Documented by User: Melissa Caba NP 03/26/25 10:53 HPI - Anesthesia Eval Consult details Narrative: 59yo F for Colonoscopy PMFSH Active Problems Active Problems: All Active Problems Vitamin D deficiency (Acute) Annual physical exam (Acute) Hx of screening mammography (Acute) Normal pelvic exam (Acute) URI (upper respiratory infection) (Acute) Knee pain, left (Acute) Smoker (Acute) Hx of colonic polyps (Acute) Past Medical History Medical History Pancreatitis Smoker Pancreatic cyst Hx of colonic polyps Hot flashes GERD (gastroesophageal reflux disease) Family History Family History Father Cancer Mother CHF (congestive heart failure) Lung cancer Brother Substance use disorder Surgical History Surgical History History of esophagogastroduodenoscopy (EGD) Hx of colonoscopy Hx laparoscopic cholecystectomy History of Problems with Anesthesia: No Social History Social History Housing: House Are you a primary direct support professional caregiver to a significant other at home: No Do you presently have visiting nurse or other home services: No Patient Tobacco Use Status: Current everyday Tobacco user Tobacco use type: Cigarette Cigarette Packs Per Day: 1 Cigarettes Per Day: 8 Years Smoked: 30+ Use of substances other than those prescribed or required for medical reasons: No Have you been hit, kicked, punched, or otherwise hurt by someone within the past year? If so, by whom?: No Are you DNR?: No Advance Directives: No Advance Directives Information Provided: Yes Patient : No Poor oral hygiene: No Current occupational status: retired Cognitive needs: No Hearing needs: No Vision needs: No Meds Allergies Allergy/AdvReac Type Severity Reaction Status Date / Time codeine (CODEINE) Allergy Intermediate NAUSEA & Verified 03/29/25 07:44 VOMITING Penicillins (PENICILLINS) Allergy Mild PAIN Verified 03/29/25 07:44 ACROSS CHEST NSAIDS (Non-Steroidal AdvReac Intermediate PANCREATITI Verified 03/29/25 07:44 Anti-Inflamma (NSAIDS S (NON-STEROIDAL ANTI-INFLAMMA) Home Medications ?Medication ?Instructions ?Recorded ?Confirmed ?Last Taken ?Type omeprazole 20 mg capsule,delayed 20 mg PO BID 03/31/21 03/26/25 Unknown History release cholecalciferol (vitamin D3) 25 25 mcg PO DAILY 03/26/25 Unknown History mcg (1,000 unit) capsule (Vitamin D3) aspirin 81 mg tablet 81 mg PO DAILY 03/26/25 06/04/2303/19/25 History lactobacillus combination no.4 3 3,000 mmu cells PO DA JENNIFER 03/26/25 03/26/25 Unknown History billion cell capsule (Probiotic) Exam Height,Weight and Vital Signs: Height 5 ft 6 in Weight 92.986 kg Assessment and Plan Assessment Anesthesia Assessment: Chart Reviewed Final Anesthetic Review History of Problems with Anesthesia: No Documented by User: Jacob Montoya MD 03/29/25 08:52 PMFSH Past Medical History Medical History Pancreatitis Smoker Pancreatic cyst Hx of colonic polyps Hot flashes GERD (gastroesophageal reflux disease) Functional capacity: independent ambulation Family History Family History Father Cancer Mother CHF (congestive heart failure) Lung cancer Brother Substance use disorder Family history of problems with anesthesia: No Surgical History Surgical History History of esophagogastroduodenoscopy (EGD) Hx of colonoscopy Hx laparoscopic cholecystectomy Social History Social History Housing: House Are you a primary direct support professional caregiver to a significant other at home: No Do you presently have visiting nurse or other home services: No Patient Tobacco Use Status: Current everyday Tobacco user Tobacco use type: Cigarette Cigarette Packs Per Day: 1 Cigarettes Per Day: 8 Years Smoked: 30+ Use of substances other than those prescribed or required for medical reasons: No Have you been hit, kicked, punched, or otherwise hurt by someone within the past year? If so, by whom?: No Are you DNR?: No Advance Directives: No Advance Directives Information Provided: Yes Patient : No Poor oral hygiene: No Current occupational status: retired Cognitive needs: No Hearing needs: No Vision needs: No Meds Allergies Allergy/AdvReac Type Severity Reaction Status Date / Time codeine (CODEINE) Allergy Intermediate NAUSEA & Verified 03/29/25 07:44 VOMITING Penicillins (PENICILLINS) Allergy Mild PAIN Verified 03/29/25 07:44 ACROSS CHEST NSAIDS (Non-Steroidal AdvReac Intermediate PANCREATITI Verified 03/29/25 07:44 Anti-Inflamma (NSAIDS S (NON-STEROIDAL ANTI-INFLAMMA) Home Medications ?Medication ?Instructions ?Recorded ?Confirmed ?Last Taken ?Type omeprazole 20 mg capsule,delayed 20 mg PO BID 03/31/21 03/26/25 Unknown History release cholecalciferol (vitamin D3) 25 25 mcg PO DAILY 03/26/25 Unknown History mcg (1,000 unit) capsule (Vitamin D3) aspirin 81 mg tablet 81 mg PO DAILY 03/26/2503/0103/19/25 History lactobacillus combination no.4 3 3,000 mmu cells PO DA JENNIFER 03/26/25 03/26/25 Unknown History billion cell capsule (Probiotic) Exam Exam Date and Time: 03/29/2025 Airway TM Dist: >3cm Neck ROM: Full Loose/Missing/Broken Teeth: No (normal dentition) Heart: rrr Lungs: cta Assessment and Plan Final Anesthetic Review Family History of Problems with Anesthesia: No NPO: Yes ASA Class: II Final Preanesthetic Review: No Changes in Pt Med Stat, Meds/Allgs Chart Reviewed, Consent Obtained/Reviewed and Anes Risks/Benef Reviewed Patient Risk: Low Procedure Risk: Low Anesthetic Plan Anesthetic Plan: MAC: Disposition: Standard PACU
[2025-03-29 07:54] VITALS: BP 148/75; PULSE 65; RESP 14; TEMP 36.7; O2SAT 98; BMI 31.6
[2025-03-29] MEDS: Lactated Ringers 1,000 ML 100 ML IVCONT (08:08)
[2025-03-29 09:43] VITALS: BP 110/80; PULSE 56; RESP 20; TEMP 36.1; O2SAT 99
--- NOTE | 2025-03-29 09:45 | P.BOP_ITS ---
Brief Operative Note Date of Service: 03/29/25 Pre-op diagnosis: Screening Post-op diagnosis: other (Colon polyps) Procedure: Colonoscopy to the cecum with hot snare polypectomy of TC polyp, bx/removal of cecal polyp, and cold snare polypectomy at 50cm Surgeon: Victor Manuel Montague MD Anesthesia: MAC Was an Independent Insurance Adjuster used for this Procedure?: No Estimated blood loss (mL): 2.0 Pathology: other (A. Transverse colon polyp B. Cecal polyp C. Polyp at 50cm) Condition: stable Disposition: PACU
[2025-03-29 09:57] VITALS: BP 133/65; PULSE 55; RESP 16; TEMP 36.1; O2SAT 99
--- NOTE | 2025-03-29 09:58 | OP_ITS ---
DATE OF SERVICE: 03/29/2025 SURGEON: Victor Manuel Montague MD INDICATIONS: The patient presents for evaluation of personal history of colon polyps and need for colorectal cancer screening. Full consent was obtained from her for this, including risks of bleeding and perforation. PREOPERATIVE DIAGNOSIS: Colorectal cancer screening and personal history of colon. POSTOPERATIVE DIAGNOSIS: Colorectal cancer screening and personal history of colon, colon polyps, diverticulosis, and internal hemorrhoids. PROCEDURE PERFORMED: Colonoscopy to the cecum with hot snare polypectomy, biopsy removal of polyp, and cold snare polypectomy. ESTIMATED BLOOD LOSS: COMPLICATIONS: ANESTHESIA: Monitored anesthesia care. ASSISTANTS: SPECIMENS: DESCRIPTION OF PROCEDURE: The patient was placed in the left lateral decubitus position. The digital rectal exam revealed no abnormalities. The Olympus video pediatric colonoscope was entered into the rectum and advanced easily to the cecum. Once in the cecum, I did identify normal-appearing cecal pouch with appendiceal orifice and normal-appearing ileocecal valve. The entire cecum was well visualized and appeared normal other than an approximately 4 mm polyp, which was biopsied and removed with cold biopsy forceps. There was transillumination of light deep in the right lower quadrant. The scope was then slowly withdrawn assessing all mucosal surfaces carefully. Preparation was excellent. In the area of the proximal transverse colon was an approximately 12 mm flat, but raised polyp, which was removed by hot snare polypectomy and recovered by suction. The polypectomy site appeared clean, without any sign of residual polyp nor bleeding. At 50 cm was an approximately 4 mm polyp, which was removed by cold snare polypectomy and recovered by suction. The polypectomy site appeared clean, without any sign of residual polyp nor any significant bleeding. I did not visualize any other polyps, colitis, nor angiodysplasia. There was a mild amount of sigmoid diverticulosis. In the rectum, scope was retroflexed visualizing internal hemorrhoids, but no other pathology. The rectal mucosa appeared normal. The scope was straightened and withdrawn from the patient. She tolerated the procedure well and was returned to recovery area in stable condition. IMPRESSION: 1. Colon polyps. 2. Diverticulosis. 3. Internal hemorrhoids. PLAN: The results of the pathology will be checked. I would recommend a repeat colonoscopy in 3 years for further surveillance. She will otherwise see me on a p.r.n. basis. She was advised not to use any aspirin and NSAIDs for 1 week. MD CARRI Kimbrough/CED / [id number] SARAN
== END 2025-03-29 10:24 | disposition home or self-care (01) ==
PROVIDERS: PCP Physician Assistant Medical; Visit Provider Internal Medicine
PROC: 0DJD8ZZ Inspection of Lower Intestinal Tract, Via Natural or Artificial Opening Endoscopic (ICD-10-PCS; CPT 45378; principal; 2025-03-29 08:30)
DX: Z12.11 Encounter for screening for malignant neoplasm of colon (principal); D12.3 Benign neoplasm of transverse colon; D12.0 Benign neoplasm of cecum; K57.30 Diverticulosis of large intestine without perforation or abscess without bleeding; K64.8 Other hemorrhoids; Z86.0101 Personal history of adenomatous and serrated colon polyps; K21.9 Gastro-esophageal reflux disease without esophagitis; E55.9 Vitamin D deficiency, unspecified; F17.210 Nicotine dependence, cigarettes, uncomplicated; Z79.899 Other long term (current) drug therapy; Z79.82 Long term (current) use of aspirin
CPT/HCPCS: 45385; 45380; 88305; J2003; J2704; J3010

== ENCOUNTER 2025-04-09 12:13 | Outpatient (AMB) | payer BC, SELFPAY ==
--- OUTSIDE RECORDS SUMMARY | 2025-02-01 03:30 | XMS_ITS ---
Author Organization [facility] Address [address] [place] [address] Care Team Providers Care [facility] Intern Name Role Phone Radha Santana Primary Care Provider Victor Manuel Burr [phone] REASON FOR VISIT screening,hx polyps Encounters Encounter Location Date Provider Diagnosis [facility] Outpatient [address] [place] [address] [phone] 02/01/2025 Victor Manuel Montague Plan Of Treatment No Information Progress Notes * REGINA DOYLE FDOB: [birth year] (59 yo F)Acc No.[id number]:02/01/2025 COLON WITH MAC Patient: REGINA RACHEL Provider: Van Montague MD :[id number] A ge:59 Y S ex:Female Date:02/01/2025 Address[address] [id number] Pcp:Radha Santana Subjective: * Chief Complaints: * 1 . Screening,hx polyps. * Medical History: Objective: * Vitals: Assessment: Plan: * Treatment: * * The named appointment provid er may or may not be the originator of this progress note, and it is not deemed complete until electronically signed by the appointment provider. Sign off status: Pending * Provider: Van Montague MD Date: 0 02/01/2025 Generated for Sondra nunez/Lazaro/eTransmitting on: 0 04/09/2025 12:27 PM EDT
--- OUTSIDE RECORDS SUMMARY | 2025-04-09 12:27 | XMS_ITS | Clinical Summary ---
Author Organization [facility] ity Address [address] [place] [address] Care Team Providers Care Transaction Coordinator Name Role Phone Unavailable Primary Care Provider Unavailabl e Social History Tobacco Use Types Packs/Day Years Used Date Smoking Tobacco: Never Assessed Comments Unknown Sex and Gender Information Value Date Recorded Sex Assigned at Not on file Legal Sex Female 9:10 PM EST Gender Identity Not on file Sexual Orientation Not on file Plan of Treatment Health Maintenance Due Date Last Done Comments Breast Cancer Screening 1965 DTaP,Tdap,and Td Vaccines (1 - Tdap) 1982 Cervical Cancer Screening: P ap Smear 1984 Pneumococcal Vaccine: 50+ Ye ars (1 of 1 - PCV) 2013 Zoster Vaccines (1 of 2) 2013 COVID-19 Vaccine (1 - 2023-2 5 season) 2024 Influenza Vaccine (#1) 2025 RSV Immunization Adult Patie nts (1 - 1-dose 75+ series) 2038 HIB Vaccines Aged Out No longer eligi ble based on patient's age to complete this topic HPV Vaccines Aged Out No longer eligi ble based on patient's age to complete this topic Hepatitis A Vaccines Aged Out No long er eligible based on patient's age to complete this topic Hepatitis B Vaccines Aged Out No long er eligible based on patient's age to complete this topic IPV Vaccines Aged Out No longer eligi ble based on patient's age to complete this topic MMR Vaccines Aged Out No longer eligi ble based on patient's age to complete this topic Meningococcal ACWY Vaccine Aged Out N o longer eligible based on patient's age to complete this topic Meningococcal B Vaccine Aged Out No l onger eligible based on patient's age to complete this topic Pneumococcal Vaccine: Pediat rics (0 to 5 Years) and At-Risk Patients (6 to 49 Years) Aged Out No longer eligible b ased on patient's age to complete this topic RSV Immunization Patients Un digna 20 months Aged Out No longer eligible b ased on patient's age to complete this topic Varicella Vaccines Aged Out No longer eligible based on patient's age to complete this topic
--- OUTSIDE RECORDS SUMMARY | 2025-04-09 12:27 | XMS_ITS | Patient Health Record ---
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 Name Role Phone Chayo West MD Primary Care Provider Alexis Larson Unavailable [phone] Allergies Allergen (clinical drug ingredient) Drug/Non Drug Allergy documented on EMR Reaction Allergy Type Onset Date Status codeine Codeine Sulfate pain, sickness Drug Allergy Active Substance with penicillin structure and antibacterial mechanism of action (substance) Penicillins pain, sickness Drug Allergy Active Reason For Referral No Information Medications Medication SIG (Take, Route, Frequency, Duration) Notes Start Date End Date Status Omeprazole Active Immunizations Vaccine Route Administration Date Status Comme nts COVID-19 Moderna Vaccine Unknown 03/12/2022 Administered 1st 12/22/20 2nd 01/19/21 3rd 09/07/21 Social History Tobacco Use: Social History Observation Description Date Details (start date - stop date) Current Smoker NA - NA Tobacco Use/Smoking Question Answer Notes Are you a: current smoker Additional Findings: Tobacco Non-User Ex-light c igarette smoker (1-9/day) Alcohol Screen Question Answer Notes Did you have a drink containing alcohol in the p ast year? Yes Points 0 Interpretation Negative Tobacco use other than smoking: Question Answer Notes Are you an other tobacco user? No Plan Of Treatment No Information Insurance Providers Payer Name Payer Address Payer Phone Subscriber Number Group Number Insured Name Patient Relationship to Insured Coverage Start Date Coverage End Date [facility] [address] [place] [address] [phone] [id number] Carter Enriquez Spouse - patient is the spouse of the insured Medical (General) History Medical History History ICD Code Gall bladder problems Chicken pox covid-19 Reflux Surgical History Surgery Date(Month/Year) gall bladder
--- OUTSIDE RECORDS SUMMARY | 2025-04-09 12:27 | XMS_ITS | Patient Health Record ---
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 Metabolic Panel ([id number] Reviewed date:11/19/2024 08:09:11 AM Interpretation: Performing Lab:[facility], [facility], Phone - [phone], Director - MDJobrigette Notes/Report: Glucose 112 70-99 [...] IU/L ALT (SGPT) 23 0-32 IU/L Lipid Panel-[id number] Reviewed date:11/19/2024 08:09:11 AM Interpretation: Performing Lab:[facility], [facility] [place], Phone - [phone], Director - MDJodry Notes/Report: Cholesterol, Total 181 100-199 mg/dL Triglycerides 119 0-149 mg/dL HDL Cholesterol 54 >39 mg/dL VLDL Cholesterol Manfred 21 5-40 mg/dL LDL Chol Calc ([facility]) 106 0-99 mg/dL Vitamin D, 04-Zyksbwo-[id number] Reviewed date:11/19/2024 08:07:52 AM Interpretation: Performing Lab:[facility], [address] [place] [address], Phone - [phone], Director - Davion Notes/Report: Vitamin D, 25-Hydroxy 29.3 30.0-100.0 ng/mL Vitamin D deficiency has been defined by the [place] of Medicine and an Endocrine Society practice guideline as a level of serum 25-OH vitamin D less than 20 ng/mL (1,2). The Endocrine Society went on to further define vitamin D insufficiency as a level between 21 and 29 ng/mL (2). 1. IOM ([place] of Medicine). 2010. Dietary reference intakes for calcium and D. [place]: The National Academies Press. 2. Rolando MF, Gertrudis NC, Singh GOMEZ, et al. Evaluation, treatment, and prevention of vitamin D deficiency: an Endocrine Society clinical practice guideline. JCEM. 2010; 96(7):1911-30. Triiodothyronine (T3), Free- [id number] Reviewed date:11/19/2024 08:09:11 AM Interpretation: Performing Lab:[facility], [address] [place] [address], Phone - [phone], - Davion Notes/Report: Triiodothyronine (T3), Free 3.3 2.0-4.4 pg/mL CBC With Differential/Platel et-[id number] Reviewed date:11/19/2024 08:09:11 AM Interpretation: Performing Lab:[facility], [address] [facility], [place], Phone - [phone], - Davion Notes/Report: WBC 9.4 3.4-10.8 x10E3/uL [...] % Immature Grans (Abs) 0.0 0.0-0.1 x10E3/uL TSH-[id number] Reviewed date:11/19/2024 08:09:11 AM Interpretation: Performing Lab:[facility] [place], [address] [place] [address], Phone - [phone], Director - MDJodry Notes/Report: TSH 2.380 0.450-4.500 uIU/mL Urinalysis, Complete-[id number] Reviewed date:11/19/2024 08:09:11 AM Interpretation: Performing Lab:[facility] [place], [address] [place] [address], Phone - [phone], Director - MDJodry Notes/Report: Specific [place] 1.010 1.005-1.030 pH 6.5 5.0-7.5 Urine-Color Yellow [...] seen None seen/Few Thyroxine (T4) Free, Direct- [id number] Reviewed date:11/19/2024 08:09:11 AM Interpretation: Performing Lab:[facility], [facility] [place], Phone - [phone], Director - Davion Notes/Report: T4,Free(Direct) 1.23 0.82-1.77 ng/dL Vitamin [id number] Reviewed date:11/19/2024 08:09:11 AM Interpretation: Performing Lab:[facility], [facility], Phone - [phone], Director - Davion Notes/Report: Vitamin B12 199 906-5400 pg/mL Hemoglobin T4m-[id number] Reviewed date:11/19/2024 08:07:58 AM Interpretation: Performing Lab:[facility], [facility] [place], Phone - [phone], Director - Davion Notes/Report: Hemoglobin A1c 5.9 4.8-5.6 % . Prediabetes: 5.7 - 6.4 Diabetes: >6.4 Glycemic control for adults with diabetes: <7.0 Reason For Referral No Information Medications Medication SIG (Take, Route, Frequency, Duration) Notes Start Date End Date Status Vitamin D3 10 MCG (400 UNIT) 2 tablets Orally Once a day Active Probiotic - as directed Orally Active Omeprazole 20 MG Oral; Duration: 90 Days Active Social History Tobacco Use: [...] Problem Status W/U Status Risk Notes Problem Vitamin D deficiency (72206954) Vitamin D deficiency, unspecified (E55.9) Active confirmed Problem Diabetes mellitus screening (759693688) Encounter for screening for diabetes mellitus (Z13.1) Active confirmed Problem Hyperlipidaemia (96789996) Hyperlipidemia, unspecified hyperlipidemia type (E78.5) Active confirmed Problem Hyperlipoproteinemia (0274977) Acquired hyperlipoproteinemia (E78.5) Active confirmed Problem Hypothyroidism (35975642) Hypothyroidism, unspecified type (E03.9) Active confirmed Problem Annual health maintenance examination (09603978) Annual physical exam (Z00.00) Active confirmed Problem Obese class I (705526098204321) BMI 33.0-33.9,adult (Z68.33) Active confirmed Problem Vitamin B>12< deficiency anaemia (19552333) Anemia due to vitamin B12 deficiency, unspecified B12 deficiency type (D51.9) Active confirmed Problem Abnormal metabolic state due to diabetes mellitus (731081617) Abnormal metabolic state due to diabetes mellitus (E11.9) Active confirmed Problem Lipid screening (887346387) Lipid screening (Z13.220) Active confirmed Problem Vitamin D deficiency (82237602) Vitamin D3 deficiency (E55.9) Active confirmed Problem Obesity (807792912) Obesity (E66.9) Active conf irmed Vital Signs Heart Rate 73 /min 11/23/2024 Oximetry 95 % 11/23/2024 Blood pressure diastolic 78 mm Hg 11/23/2024 Height 66 in 11/23/2024 Blood pressure systolic 118 mm Hg 11/23/2024 Weight 211.2 lbs 11/23/2024 BMI 34.08 kg/m2 11/23/2024 Encounters Encounter Location Date Provider Diagnosis [facility] [address] [place] [address] 10/09/2024 SURINDER BRADLEY Esophageal hiatal he rnia K44.9 ; Obesity E66.9 ; Tobacco abuse Z72.0 and BMI 33.0-33.9,adult Z68.[address] [place], [place] 11/23/2024 SURINDER BRADLEY Esophageal hiatal he rnia K44.9 ; Annual physical exam Z00.00 ; [...] Dictation was accomplished with the use of Rapid7 voice recognition software, prone to medical misidentifications [...] Dictation was accomplished with the use of Rapid7 voice recognition software, prone to medical misidentifications [...] log exercise and discussed fitness Apps like [employer]One which can help keep log off calories [...] Dictation was accomplished with the use of Rapid7 voice recognition software, prone to medical misidentifications [...] log exercise and discussed fitness Apps like [employer] which can help keep log off calories [...] Dictation was accomplished with the use of Rapid7 voice recognition software, prone to medical misidentifications [...] log exercise and discussed fitness Apps like [employer] which can help keep log off calories [...] Dictation was accomplished with the use of Rapid7 voice recognition software, prone to medical misidentifications [...] Dictation was accomplished with the use of Dragon voice recognition software, prone to medical misidentifications [...] Dictation was accomplished with the use of [employer] voice recognition software, prone to medical misidentifications [...] log exercise and discussed fitness Apps like [employer] which can help keep log off calories [...] Dictation was accomplished with the use of Rapid7 voice recognition software, prone to medical misidentifications [...] log exercise and discussed fitness Apps like [employer] which can help keep log off calories [...] Dictation was accomplished with the use of Rapid7 voice recognition software, prone to medical misidentifications [...] log exercise and discussed fitness Apps like [employer] which can help keep log off calories [...] Dictation was accomplished with the use of Rapid7 voice recognition software, prone to medical misidentifications [...] BRADLEY, 05/24/2025 01:00:00 PM, [address], [place], [address], Insurance Providers Payer Name Payer Address Payer Phone Subscriber Number Group Number Insured Name Patient Relationship to Insured Coverage Start Date Coverage End Date [facility] [employer] [facility] [employer] [address] [place] [address] [phone] [id number] Wendy Enriquez Self - patient is the insured 4 Medical (General) History Medical History History ICD Code Vertigo R42 Esophageal hiatal hernia K44.9 Obesity E66.9 Polyp of colon K63.5 Glucosuria Vitamin D3 deficiency E55.9 Surgical History Surgery Date(Month/Year) Cholecystectomy 09/22/2016 Hospitalization History Reason Date(Month/Year) Pancreatitis 2005 EGD/Colonoscopy- Dr Montague 2024
[2025-04-09 12:39] VITALS: BP 132/80; PULSE 67; O2SAT 97; BMI 32.6
--- NOTE | 2025-04-09 12:39 | MHC.OFFWIV ---
Intake Vital Signs 04/09/25 12:39 Height 5 ft 6 in Weight 202 lb BMI 32.6 BP 132/80 Blood Pressure Location Rt brachial Position Sitting Pulse 67 Pulse Source Pulse Oximeter Pulse Oximetry (%) 97 Oxygen Delivery Method Room Air Oxygen Flow Rate 98.2 Intake Visit Reasons: EP Cough, chest heaviness, fatigue Intake Note: pt here for chest congestion with rattling, non productive cough, fatigue for a week Patient Tobacco Use Status: Current everyday Tobacco user Allergies codeine (CODEINE) Allergy (Intermediate, Verified 04/09/25 12:43) NAUSEA & VOMITING Penicillins (PENICILLINS) Allergy (Mild, Verified 04/09/25 12:43) PAIN ACROSS CHEST NSAIDS (Non-Steroidal Anti-Inflamma (NSAIDS (NON-STEROIDAL ANTI-INFLAMMA) Adverse Reaction (Intermediate, Verified 04/09/25 12:43) PANCREATITIS Do you need a note to return to daycare/school/sports/work: No HPI HPI Comments History of Present Illness Details This is a 59-year-old female with a past medical history of gastroesophageal reflux disease presenting for evaluation of a productive cough. Patient's symptoms started 1 week ago when she developed a sore throat which improved over the weekend and thereafter she developed a cough. Patient states that she feels a lot of phlegm in her cough but is unable to ultimately cough anything up. She denies having any fevers, chills, chest pain, hemoptysis, sore throat or ear pain however she does describe significant fatigue. Patient has been taking NyQuil without relief of her discomfort. [facility] Medical History Pancreatitis Smoker Pancreatic cyst Hx of colonic polyps Hot flashes GERD (gastroesophageal reflux disease) Surgical History History of esophagogastroduodenoscopy (EGD) Hx of colonoscopy Hx laparoscopic cholecystectomy Family History Father Cancer Mother CHF (congestive heart failure) Lung cancer Brother Substance use disorder Social History Housing: House Are you a primary skin care instructor to a significant other at home: No Do you presently have visiting nurse or other home services: No Patient Tobacco Use Status: Current everyday Tobacco user Tobacco use type: Cigarette Cigarette Packs Per Day: 1 Cigarettes Per Day: 8 Years Smoked: 30+ Current occupational status: retired Cognitive needs: No Hearing needs: No Vision needs: No Review of Systems Const All systems reviewed & are unremarkable except as noted in HPI and below Reports as per HPI, Reports no additional complaints, Denies chills, Reports fatigue, Denies fever(s) and Denies headache(s) Eyes Reports no additional complaints ENT Reports no additional complaints and Denies headache(s) Card Denies chest pain and Denies dyspnea Resp Reports chest congestion, Reports cough, Denies hemoptysis, Denies pain with cough, Denies dyspnea and Denies wheezing GI Reports no additional complaints, Denies nausea and Denies vomiting Musc Reports no additional complaints Skin/Breast Reports system reviewed and no additional complaints, except as documented Neuro Reports no additional complaints and Denies headache(s) Psych Reports no additional complaints Endo Reports fatigue Aller/Immun Denies wheezing Physical Exam Vital Signs: Last Vital Signs Pulse 67 04/09/25 12:39 Pulse Ox 97 04/09/25 12:39 Oxygen Delivery Method Room Air 04/09/25 12:39 Oxygen Flow Rate 98.2 04/09/25 12:39 BMI result Body Mass Index 32.6 Const General: cooperative, comfortable, no acute distress and well developed; No ill appearing or lethargic Nutritional Appearance: well nourished Orientation/consciousness: patient oriented x3 and No lethargic Limitations: no limitations HEENT Head: Yes normal to inspection and Yes normocephalic Ears: hearing grossly normal bilaterally, external ears normal, TM's normal bilaterally and EAC's normal General nose exam: Normal external nose present Face and sinus: Yes normal facial exam and Yes sinuses nontender Mouth: Normal oral and palatal mucosa present and moist mucous membranes Teeth and gingiva: dentition normal Throat: Yes posterior oropharynx normal Eyes General: appearance normal, both eyes and all related structures Neck Lymphatic: no lymphadenopathy noted Resp Effort & Inspection: normal respiratory effort, able to speak in complete sentences, no audible wheezes, no cough and no respiratory distress Auscultation: diminished lung sounds on the left in the upper lung manuel Cardio Rate: regular rate Rhythm: regular rhythm Skin General skin exam: no rashes or lesions noted Neuro General: patient oriented x3 Psych Appearance: grossly normal Mental Status: mental status grossly normal Insight: Good insight present (Psych) Judgement: Good judgement present (Psych) Results Reviewed Results Reviewed: No acute findings noted on chest x-ray. Assessment & Plan Assessment & Plan (1) Acute upper respiratory infection: Comment: No acute findings noted on chest x-ray. Patient will be discharged home. Code(s): J06.9 - Acute upper respiratory infection, unspecified Plan: Mucinex OTC daily with increased clear fluids. Orders: Orders XR chest 2V Today R05.9 - Cough, unspecified Coding Level of Care Code New Pt Level 4 (23708) Diagnoses Acute upper respiratory infection J06.9 Time Spent (min) 20
== END 2025-04-09 13:44 | disposition home or self-care (01) ==
PROVIDERS: PCP Physician Assistant Medical; Visit Provider Physician Assistant
DX: J06.9 Acute upper respiratory infection, unspecified (principal)

== ENCOUNTER 2025-04-09 12:13 | Outpatient (REF) | payer BC, SELFPAY ==
--- NOTE | ~2025-04-09 | XR_ITS ---
EXAMINATION: XR CHEST 2 VIEWS HISTORY: R05.9 - Cough, unspecified COMPARISON: Comparison is made with the prior examination dated 12/21/2021. FINDINGS: PA and lateral views of the chest are submitted. The lungs are expanded and clear. There is no pleural effusion, pneumothorax, or pulmonary vascular congestion. The heart is normal in size. The bones are intact. XR/XR chest 2V IMPRESSION: No acute cardiopulmonary abnormality. Electronically signed by: Victor Manuel Hurtado MD 04/09/2025 01:26 PM EDT
== END 2025-04-09 12:14 | disposition home or self-care (01) ==
LOC: HO.HMGCX 12:13
PROVIDERS: PCP Physician Assistant Medical; Visit Provider Physician Assistant
DX: J06.9 Acute upper respiratory infection, unspecified (principal); R05.9 Cough, unspecified
CPT/HCPCS: 71046

== ENCOUNTER → 2025-04-09 13:04 | Outpatient (BNV) | payer BC, SELFPAY | PROVIDERS: PCP Physician Assistant Medical; Visit Provider Radiology Diagnostic Radiology | DX: R05.9 Cough, unspecified (principal) | CPT/HCPCS: 71046 ==